=== PATIENT | male | born 1985 | race Caucasian/White ===

== ENCOUNTER 2022-03-05 22:21 | Emergency (ER) | payer OTHER, SELFPAY ==
[2022-03-05 22:26] VITALS: BP 145/83; PULSE 87; RESP 18; TEMP 36.6; O2SAT 96
--- NOTE | 2022-03-05 22:30 | DI.RAD.S_ITS ---
PROCEDURE: XR KNEE RT 3V INDICATIONS: fall TECHNIQUE: 3 views of the knee were acquired. COMPARISON: None. FINDINGS: Bones: There is a mildly displaced fracture of the tibial spine. Mild to moderate joint space narrowing is demonstrated in the medial compartment. Soft tissues: There is a large joint effusion with a lipohemarthrosis. No suspicious soft tissue calcifications. IMPRESSION: 1. Mildly displaced fracture of the tibial spine. 2. Large joint effusion with a lipohemarthrosis. Dictated by: Jaime Stahl M.D. on 03/06/2022 at 0:32 Approved by: Jaime Stahl M.D. on 03/06/2022 at 0:33
--- NOTE | 2022-03-05 23:57 | ED.LOWEXIN ---
HPI - Extremity Injury (Lower) General Chief Complaint: Extremity Injury, Lower Stated Complaint: Skateboarding fall rt leg injury Time Seen by Provider: 03/05/22 23:38 Source: patient Mode of arrival: Ambulatory (With crutches) History of Present Illness HPI Narrative: Patient is a 36-year-old male who is here for evaluation of a right knee injury. He states that earlier this evening he was skateboarding. He states that another skateboard from another individual came towards him. He states he did jump off his skateboard and when doing so he landed awkwardly on his right leg with a twisting injury. Has had pain and swelling since then. He did arrive with crutches that belonged to a friend of his. No prior injuries to his right knee. Has difficulty raising and bending his leg secondary to the discomfort. He reports no other injuries from the event. Related Data Previous Rx's Medication Instructions Recorded hydrocodone 5 mg-acetaminophen 325 1 tab PO Q4-6H PRN pain #10 tabs 03/06/22 mg tablet Allergies Allergy/AdvReac Type Severity Reaction Status Date / Time No Known Drug Allergies Allergy Verified 03/05/22 22:29 Review of Systems Musculoskeletal Musculoskeletal: Reports system reviewed and no additional complaints, except as documented Integumentary/Breasts Skin/Breast: Reports system reviewed and no additional complaints, except as documented Neurologic Neurologic: Reports system reviewed and no additional complaints, except as documented Hematologic/Lymphatic On Anticoagulants: No Patient History Medical History Healthy adult Social History lives independently: Yes Exam Initial Vital Signs Initial Vital Signs: Vital Signs Temperature 97.8 F 03/05/22 22:26 Pulse Rate 87 03/05/22 22:26 Respiratory Rate 18 03/05/22 22:26 Blood Pressure 145/83 H 03/05/22 22:26 Pulse Oximetry 96 03/05/22 22:26 Oxygen Delivery Method 03/05/22 22:26 Const General: cooperative HENMT Head: normal to inspection and normocephalic Cardio Pulses: radial pulses present on the right Skin Other: Redness associated with the effusion around the right knee. Neuro Sensory Exam: no sensory deficits noted Extrem Other: Patient has an obvious effusion to the right knee with tenderness to palpation throughout the right knee. Unable to to any functional testing of the ligaments secondary to the fusion in the discomfort that the patient is having. Rest of his right lower extremity exam is unremarkable. Procedures Orthopedic Splinting/Casting Injury #1: Side: right Lower Extremity Immobilizer: knee immobilizer Other Orthopedic Equipment: crutches Post splinting neuro exam: no change Post splinting vascular exam: no change Placed by: Nursing Course Orders Ordered: ED Orders 03/05/22 22:30 XR knee RT 3V Stat Discontinued Medications Hydrocodone Bitart/Acetaminophen (Hydrocodone/Acet 5/325 Prepack) 1 bottle MISC SEEINSTR ONE Stop: 03/06/22 00:52 Last Admin: 03/06/22 01:04 Dose: Not Given Documented By: DAVY Vital Signs Vital signs: Vital Signs - 8 hr 03/05/22 22:26 03/06/22 01:06 Temperature 97.8 F Pulse Rate 87 68 Respiratory Rate 18 17 Blood Pressure 145/83 H 118/65 Pulse Oximetry 96 98 Oxygen Delivery Method Room Air Room Air MDM - Extremity Injury (Lower) Imaging Data Extremity x-ray #1: Radiologist's Impression: [address] [address] XRay Report Signed Patient: Samm Nugent MR#: [id number] : 1985 Acct:[id number] Age/Sex: 36 / M Date of Service: 03/05/22 Loc: ED Accession Number: [id number] ?? Procedure: XR knee RT 3V Ordering Provider: Angel Montoya D.O. PROCEDURE:? XR KNEE RT 3V ? INDICATIONS:? fall ? TECHNIQUE:? 3 views of the knee were acquired.? ? COMPARISON:? None. ? FINDINGS:? ? Bones:? There is a mildly displaced fracture of the tibial spine.? Mild to moderate joint space narrowing is demonstrated in the medial compartment. ? Soft tissues:? There is a large joint effusion with a lipohemarthrosis.? No suspicious soft tissue calcifications.? ? ? IMPRESSION:? ? 1. Mildly displaced fracture of the tibial spine. ? 2. Large joint effusion with a lipohemarthrosis. ? ? Dictated by: Jaime Stahl M.D. on 03/06/2022 at 0:32 ? ? Approved by: Jaime Stahl M.D. on 03/06/2022 at 0:33? MDM Narrative Medical decision making narrative: Patient obvious has a large effusion to the right knee however a full exam is unable to be performed secondary to the effusion in the discomfort. The x-ray shows what appears to be a tibial spine fracture which is concerning about an ACL injury. I did discuss this with him. He was placed in a knee immobilizer. He has crutches. Was sent home with pain medication. He was given follow-up instructions with orthopedics. He expressed understanding and agreement. Discharge Plan Departure Patient Disposition: Home Clinical Impression: Closed displaced fracture of tibial spine Instructions: How to Use Crutches, DI for Knee Effusion, How to Use a Knee Immobilizer Activity Restrictions/Additional Instructions: Use the crutches as needed. I do recommend that when your up walking that you use the knee immobilizer however this can be removed when you are showering or lying in bed or sitting. Contact the Orthopedic Department at the number provided below as the findings on the x-rays today are concerning about a ACL tear. You will need further workup of this. Return to the emergency department for any new or worsening symptoms. Prescriptions: New hydrocodone-acetaminophen 5-325 mg tablet 1 tab PO Q4-6H PRN (Reason: pain) Qty: 10 0RF Referrals: Dayana Ram MD [Physician] - Visit Report Forms: Patient Portal/API
[2022-03-06 01:06] VITALS: BP 118/65; PULSE 68; RESP 17; O2SAT 98
== END 2022-03-06 01:07 | disposition home or self-care (01) ==
PROVIDERS: Emergency Provider Emergency Medicine
DX: S82.201A Unspecified fracture of shaft of right tibia, initial encounter for closed fracture (principal); V00.131A Fall from skateboard, initial encounter
CPT/HCPCS: 73562; 99283

== ENCOUNTER → 2025-03-11 14:37 | Outpatient (CLI) | payer BC, SELFPAY ==
[2025-03-11 14:55] LABS: Semen Sperm Prescence Post-Vas Absent (ABSENT)
== END ==
LOC: LAB 14:38
PROVIDERS: PCP Physician Assistant Medical; Referring Provider Physician Assistant Medical; Visit Provider Urology
DX: Z30.09 Encounter for other general counseling and advice on contraception (principal)
CPT/HCPCS: 89321